=== PATIENT | male | born 1960 | race Caucasian/White ===

== ENCOUNTER 2024-10-10 02:42 | Outpatient (CLI) | payer BC, SELFPAY ==
--- NOTE | 2024-10-10 | DI.RAD_ITS ---
Exam(s) XR FOOT RT COMPLETE EXAM: XR FOOT RT COMPLETE CLINICAL HISTORY: RT FOOT PAIN,M79.671. TECHNIQUE: 2D digital imaging was performed. COMPARISON: No exams were available for comparison FINDINGS: 3 views No evidence of acute fracture or diastasis of the Lisfranc joint. There are mild degenerative changes at the 1st tarsometatarsal joint. Also mild degenerative changes in the lateral aspect of the great toe metatarsophalangeal joint. The more medial of the 2 sesamoid bones subjacent to the great toe metatarsal head is noted to be bipartite. No other osseous findings in the right forefoot and midfoot. Posteriorly there is an enthesophyte at the posterior calcaneus insertion site of the Achilles tendon. There is no inferior calcaneal spur. Bone density normal. No osseous lesions in the foot. IMPRESSION: As above. DATA REPOSITORY: RADIATION DOSE DELIVERED:
--- NOTE | 2024-10-10 | DI.RAD_ITS ---
Exam(s) XR FOOT LT COMPLETE EXAM: XR FOOT LT COMPLETE CLINICAL HISTORY: LT FOOT PAIN,M79.672. TECHNIQUE: 2D digital imaging was performed. COMPARISON: CR XR FOOT RT COMPLETE from 10/10/2024 FINDINGS: 3 views No evidence of fracture nor diastasis of the Lisfranc joint. The great toe metatarsophalangeal joint appears un remarkable as do the other articulations. No pes planus. No inferior calcaneal spur nor enthesophytes. IMPRESSION: No acute osseous findings in the left foot. DATA REPOSITORY: RADIATION DOSE DELIVERED:
== END 2024-10-10 03:02 ==
PROVIDERS: Visit Provider Podiatrist
DX: M19.071 Primary osteoarthritis, right ankle and foot (principal)
CPT/HCPCS: 73630